=== PATIENT | female | born 1935 | race Caucasian/White ===

== ENCOUNTER 2017-08-05 13:06 | Inpatient (IN) | payer MEDICARE ==
[~2017-08-05] VITALS: Ht 157.5 cm; Wt 50.3 kg
[2017-08-05 13:11] VITALS: BP 162/89; PULSE 95; RESP 25; TEMP 97.2; O2SAT 99
[2017-08-05 13:22] VITALS: BP 162/89; PULSE 82; RESP 25; TEMP 97.2; O2SAT 98
[2017-08-05 13:48] LABS: AUTOMATED NEUTROPHIL # 3.8 TH/MM3 (1.8-7.7); BASOPHIL % 0.3 % (0.0-2.0); EOSINOPHIL % 0.1 % (0.0-4.0); HEMATOCRIT 40.8 % (35.0-46.0); HEMOGLOBIN 13.5 GM/DL (11.6-15.3); LYMPH % 21.4 % (9.0-44.0); LYMPHOCYTE # 1.1 TH/MM3 (1.0-4.8); MEAN CELL VOLUME 80.7 FL (80.0-100.0); MEAN CORPUSCULAR HEMOGLOBIN 26.6 PG (27.0-34.0); MEAN PLATELET VOLUME 8.5 FL (7.0-11.0); MONOCYTE # 0.3 TH/MM3 (0-0.9); NEUT % 72.2 % (16.0-70.0); PLATELET COUNT 221 TH/MM3 (150-450); RED BLOOD COUNT 5.06 MIL/MM3 (4.00-5.30); RED CELL DISTRIBUTION WIDTH 18.4 % (11.6-17.2); WHITE BLOOD COUNT 5.2 TH/MM3 (4.0-11.0)
[2017-08-05 14:03] LABS: D-DIMER 0.91 MG/L FEU (0.00-0.50); INTERNATIONAL NORMALIZED RATIO 1.1 RATIO; PROTHROMBIN TIME - PATIENT 10.8 SEC (9.8-11.6)
[2017-08-05 14:06] LABS: BICARBONATE 24.4 MEQ/L (21.0-32.0); CALCIUM 9.1 MG/DL (8.5-10.1); CREATININE 1.52 MG/DL (0.50-1.00)
--- NOTE | 2017-08-05 14:14 | RADRPT ---
EXAM DATE/TIME: 08/05/2017 13:42 [place] COMPARISON: No previous studies available for comparison. INDICATIONS : Chest pain and shortness of breath today. MEDICAL HISTORY : Atrial fibrillation. SURGICAL HISTORY : None. ENCOUNTER: Initial ACUITY: 1 day PAIN SCORE: 3/10 LOCATION: Bilateral chest FINDINGS: Cardiomegaly with moderate interstitial edema. Moderate hyperinflation Vascular tortuous and uncoil ed. There is no pleural effusion or alveolar consolidation. Moderate mitral valve calcifications. CONCLUSION: Moderate hyperinflation and cardiomegaly and congestive failure. No pleural effusion Dagoberto Martines MD FACR on August 05, 2017 at 14:11 Board Certified Radiologist. This report was verified electronically.
--- NOTE | 2017-08-05 14:22 | PD ---
HPI Chief Complaint: Respiratory Distress Time Seen by Provider: 13:56 Travel History International Travel<30 days: No Contact w/Intl Traveler<30days: No Traveled to known affect area: No History of Present Illness HPI Patient is an 82-year-old female presenting to the emergency department for evaluation of shortness of breath, palpitations. Patient states this is been going on for a few weeks. She has been evaluated by her gas generator operator, she was put on metoprolol on July 24 and then pravastatin 2 days ago. She reports that the shortness of breath is worse with exertion which is also been ongoing for a few weeks. Patient has a history of atrial fibrillation, she had a cardioversion 2 years ago. She is currently on Eliquis, metoprolol, lisinopril , omeprazole, pravastatin. Patient states that the shortness of breath is worse at night, she states that she has to sit up or walk around in order to make it better. She does endorse feeling anxious at times. She is denying any chest pain. She does state that she vomited twice today, she denies any abdominal pain, fever, chills, headache. She has no primary care provider in the area, she is from [facility]. Her gas generator operator is Dr. Rissa LEON Past Medical History Hx Anticoagulant Therapy: Yes (ELIQUIS) Atrial Fibrillation: Yes Cardiovascular Problems: Yes (AFIB) High Cholesterol: Yes Hypertension: Yes ?: Not Social History Alcohol Use: No Tobacco Use: No Substance Use: No Allergies-Medications (Allergen,Severity, Reaction): Coded Allergies: Penicillins (Verified Allergy, Severe, Rash, 08/05/17) sesame seed (Verified Allergy, Severe, Hives, 08/05/17) strawberry (Verified Allergy, Severe, Hives, 08/05/17) morphine (Verified Adverse Reaction, Severe, Nausea/Vomiting, 08/05/17) propoxyphene (Verified Adverse Reaction, Severe, Nausea/Vomiting, 08/05/17) Reported Meds & Prescriptions Reported Meds & Active Scripts Active Reported Lisinopril 10 Mg Tab 10 Mg PO DAILY Pravastatin 20 Mg Tab 20 Mg PO DAILY Eliquis (Apixaban) 2.5 Mg Tab 2.5 Mg PO BID Omeprazole 20 Mg Tab 20 Mg PO DAILY Metoprolol Tartrate 50 Mg Tab 50 Mg PO BID Review of Systems Except as stated in HPI: all other systems reviewed are Neg General / Constitutional: No: Fever HENT: No: Headaches, Lightheadedness Cardiovascular: Positive: Palpitations, Irregular Rhythm, No: Chest Pain or Discomfort, Edema Respiratory: Positive: Shortness of Breath, No: Cough Gastrointestinal: Positive: Nausea, Vomiting, No: Abdominal Pain Genitourinary: No: Dysuria Musculoskeletal: No: Myalgias Neurologic: No: Weakness, Dizziness, Syncope, Focal Abnormalities Physical Exam Narrative GENERAL: Well-developed, well-nourished, alert elderly female. Presenting in no acute distress. SKIN: Warm and dry. HEAD: Atraumatic. Normocephalic. EYES: Pupils equal and round. No scleral icterus. No injection or drainage. ENT: No nasal bleeding or discharge. Mucous membranes pink and moist. NECK: Trachea midline. No JVD. CARDIOVASCULAR: Irregularly irregular RESPIRATORY: No accessory muscle use. Clear to auscultation. Breath sounds equal bilaterally. Slightly diminished in bases. GASTROINTESTINAL: Abdomen soft, non-tender, nondistended. Hepatic and splenic margins not palpable. MUSCULOSKELETAL: Extremities without clubbing, cyanosis, or edema. No obvious deformities. NEUROLOGICAL: Awake and alert. No obvious cranial nerve deficits. Motor grossly within normal limits. Five out of 5 muscle strength in the arms and legs. Normal speech. PSYCHIATRIC: Appropriate mood and affect; insight and judgment normal. Data Data Last Documented VS Vital Signs Date Time Temp Pulse Resp B/P (MAP) Pulse Ox O2 Delivery O2 Flow Rate FiO2 08/05/17 15:26 20 94 Room Air 08/05/17 13:22 97.2 82 Orders Orders Complete Blood Count With Diff (08/05/17 13:18) Basic Metabolic Panel (Bmp) (08/05/17 13:18) Chest, Pa & Lat (08/05/17 13:18) Iv Access Insert/Monitor (08/05/17 13:18) Ecg Monitoring (08/05/17 13:18) Oxygen Administration (08/05/17 13:18) Oximetry (08/05/17 13:18) Electrocardiogram (08/05/17 13:18) Prothrombin Time / Inr (Pt) (08/05/17 13:18) D-Dimer (08/05/17 13:18) B-Type Natriuretic Peptide (08/05/17 14:14) Ckmb (Isoenzyme) Profile (08/05/17 14:14) Troponin I (08/05/17 14:14) Lipase (08/05/17 14:14) Hepatic Functional Panel (08/05/17 14:14) Urinalysis - C+S If Indicated (08/05/17 15:06) Urine Culture (08/05/17 15:15) Furosemide Inj (Lasix Inj) (08/05/17 15:45) Ceftriaxone Inj (Rocephin Inj) (08/05/17 16:00) Admit Order (Ed Use Only) (08/05/17 16:02) Labs Laboratory Tests Test 08/05/17 13:30 08/05/17 13:36 08/05/17 15:15 White Blood Count 5.2 TH/MM3 Red Blood Count 5.06 MIL/MM3 Hemoglobin 13.5 GM/DL Hematocrit 40.8 % Mean Corpuscular Volume 80.7 FL Mean Corpuscular Hemoglobin 26.6 PG Mean Corpuscular Hemoglobin Concent 33.0 % Red Cell Distribution Width 18.4 % Platelet Count 221 TH/MM3 Mean Platelet Volume 8.5 FL Neutrophils (%) (Auto) 72.2 % Lymphocytes (%) (Auto) 21.4 % Monocytes (%) (Auto) 6.0 % Eosinophils (%) (Auto) 0.1 % Basophils (%) (Auto) 0.3 % Neutrophils # (Auto) 3.8 TH/MM3 Lymphocytes # (Auto) 1.1 TH/MM3 Monocytes # (Auto) 0.3 TH/MM3 Eosinophils # (Auto) 0.0 TH/MM3 Basophils # (Auto) 0.0 TH/MM3 CBC Comment DIFF FINAL Differential Comment Prothrombin Time 10.8 SEC Prothromb Time International Ratio 1.1 RATIO D-Dimer Quantitative (PE/DVT) 0.91 MG/L FEU Blood Urea Nitrogen 35 MG/DL Creatinine 1.52 MG/DL Random Glucose 168 MG/DL Calcium Level 9.1 MG/DL Sodium Level 133 MEQ/L Potassium Level 5.6 MEQ/L Chloride Level 99 MEQ/L Carbon Dioxide Level 24.4 MEQ/L Anion Gap 10 MEQ/L Estimat Glomerular Filtration Rate 33 ML/MIN Total Bilirubin 0.7 MG/DL Direct Bilirubin 0.2 MG/DL Indirect Bilirubin 0.5 MG/DL Aspartate Amino Transf (AST/SGOT) 123 U/L Alanine Aminotransferase (ALT/SGPT) 176 U/L Alkaline Phosphatase 111 U/L Total Creatine Kinase 79 U/L Troponin I LESS THAN 0.02 NG/ML Total Protein 7.3 GM/DL Albumin 3.8 GM/DL Lipase 142 U/L B-Type Natriuretic Peptide GREATER THAN 5000 PG/ML Urine Color YELLOW Urine Turbidity CLEAR Urine pH 6.0 Urine Specific [place] 1.018 Urine Protein 30 mg/dL Urine Glucose (UA) NEG mg/dL Urine Ketones NEG mg/dL Urine Occult Blood TRACE Urine Nitrite NEG Urine Bilirubin NEG Urine Urobilinogen LESS THAN 2.0 MG/DL Urine Leukocyte Esterase LARGE Urine RBC 7 /hpf Urine WBC 36 /hpf Urine Squamous Epithelial Cells 1 /hpf Urine Transitional Epithelial Cells 1 /hpf Urine Bacteria OCC /hpf Urine Hyaline Casts 7 /lpf Urine Mucus FEW /lpf Microscopic Urinalysis Comment CULTURE INDICATED MDM Medical Decision Making Medical Screen Exam Complete: Yes Emergency Medical Condition: Yes Interpretation(s) Laboratory Tests Test 08/05/17 13:30 08/05/17 13:36 08/05/17 15:15 White Blood Count 5.2 TH/MM3 Red Blood Count 5.06 MIL/MM3 Hemoglobin 13.5 GM/DL Hematocrit 40.8 % Mean Corpuscular Volume 80.7 FL Mean Corpuscular Hemoglobin 26.6 PG Mean Corpuscular Hemoglobin Concent 33.0 % Red Cell Distribution Width 18.4 % Platelet Count 221 TH/MM3 Mean Platelet Volume 8.5 FL Neutrophils (%) (Auto) 72.2 % Lymphocytes (%) (Auto) 21.4 % Monocytes (%) (Auto) 6.0 % Eosinophils (%) (Auto) 0.1 % Basophils (%) (Auto) 0.3 % Neutrophils # (Auto) 3.8 TH/MM3 Lymphocytes # (Auto) 1.1 TH/MM3 Monocytes # (Auto) 0.3 TH/MM3 Eosinophils # (Auto) 0.0 TH/MM3 Basophils # (Auto) 0.0 TH/MM3 CBC Comment DIFF FINAL Differential Comment Prothrombin Time 10.8 SEC Prothromb Time International Ratio 1.1 RATIO D-Dimer Quantitative (PE/DVT) 0.91 MG/L FEU Blood Urea Nitrogen 35 MG/DL Creatinine 1.52 MG/DL Random Glucose 168 MG/DL Calcium Level 9.1 MG/DL Sodium Level 133 MEQ/L Potassium Level 5.6 MEQ/L Chloride Level 99 MEQ/L Carbon Dioxide Level 24.4 MEQ/L Anion Gap 10 MEQ/L Estimat Glomerular Filtration Rate 33 ML/MIN Total Bilirubin 0.7 MG/DL Direct Bilirubin 0.2 MG/DL Indirect Bilirubin 0.5 MG/DL Aspartate Amino Transf (AST/SGOT) 123 U/L Alanine Aminotransferase (ALT/SGPT) 176 U/L Alkaline Phosphatase 111 U/L Total Creatine Kinase 79 U/L Troponin I LESS THAN 0.02 NG/ML Total Protein 7.3 GM/DL Albumin 3.8 GM/DL Lipase 142 U/L B-Type Natriuretic Peptide GREATER THAN 5000 PG/ML Urine Color YELLOW Urine Turbidity CLEAR Urine pH 6.0 Urine Specific [place] 1.018 Urine Protein 30 mg/dL Urine Glucose (UA) NEG mg/dL Urine Ketones NEG mg/dL Urine Occult Blood TRACE Urine Nitrite NEG Urine Bilirubin NEG Urine Urobilinogen LESS THAN 2.0 MG/DL Urine Leukocyte Esterase LARGE Urine RBC 7 /hpf Urine WBC 36 /hpf Urine Squamous Epithelial Cells 1 /hpf Urine Transitional Epithelial Cells 1 /hpf Urine Bacteria OCC /hpf Urine Hyaline Casts 7 /lpf Urine Mucus FEW /lpf Microscopic Urinalysis Comment CULTURE INDICATED Date Time Temp Pulse Resp B/P (MAP) Pulse Ox O2 Delivery O2 Flow Rate FiO2 08/05/17 13:22 97.2 82 25 162/89 (113) 98 Room Air 08/05/17 13:11 97.2 95 25 162/89 (113) 99 Differential Diagnosis CHF versus metabolic abnormality versus anxiety versus less likely pulmonary embolism versus other Narrative Course Patient is a well-appearing 82-year-old female presenting for evaluation of shortness of breath which is worse with exertion. She has a history of atrial fibrillation, she is currently on Eliquis and metoprolol. Initial EKG shows atrial fibrillation with rapid ventricular response however her rate is only 100. Patient is well-appearing, her vital signs are stable. Current heart rate is in the 70s. Labs and imaging ordered and pending. Patient was protocoled in triage. CBC with no acute findings Chemistry with BUN and creatinine 35/1.52, potassium 5.6, AST and ALT 123/176 BNP greater than 5000 Urinalysis is consistent with urinary tract infection, reflex culture pending. Patient reports an allergy to penicillin but is able to tolerate Keflex. Patient will be given dose of Rocephin now. D-dimer 0.91, likely demand ischemia from the congestive heart failure and acute renal insufficiency. Findings discussed with my attending physician. Residents accepted admit on behalf of Dr. Ira Ceja. Admit orders placed. All exam findings were discussed with patient and friend at bedside. Diagnosis Primary Impression: Congestive heart failure Qualified Codes: I50.9 - Heart failure, unspecified Additional Impressions: Acute renal insufficiency UTI (urinary tract infection) Qualified Codes: N39.0 - Urinary tract infection, site not specified; R31.9 - Hematuria, unspecified Hyperkalemia Transaminitis Atrial fibrillation Qualified Codes: I48.91 - Unspecified atrial fibrillation Admitting Information Admitting Physician Requests: Admit Condition: Stable Eloisa Guerra Aug 05, 2017 14:22
[2017-08-05 15:14] LABS: ALBUMIN 3.8 GM/DL (3.4-5.0); ALKALINE PHOSPHATASE 111 U/L (45-117); ALT (GPT) 176 U/L (10-53); AST (GOT) 123 U/L (15-37); DIRECT BILIRUBIN ADULT 0.2 MG/DL (0.0-0.2); INDIRECT BILIRUBIN 0.5 MG/DL (0.0-0.8); TOTAL BILIRUBIN ADULT 0.7 MG/DL (0.2-1.0); TOTAL PROTEIN 7.3 GM/DL (6.4-8.2); TROPONIN I LESS THAN 0.02 NG/ML (0.02-0.05)
[2017-08-05] MEDS ORDERED: APIX2.5T PO (15:23)
[2017-08-05] MEDS ORDERED: LISI10TA3 PO (15:23)
[2017-08-05] MEDS ORDERED: OMEP20TA93 PO (15:23)
[2017-08-05] MEDS ORDERED: PRAV20TA2 PO (15:23)
[2017-08-05] MEDS ORDERED: METO50TA PO (15:23)
[2017-08-05 15:26] VITALS: RESP 20; O2SAT 94
[2017-08-05 15:36] LABS: BACTERIA, URINE OCC /hpf; BILIRUBIN, URINE NEG (NEG); BLOOD, URINE TRACE (NEG); GLUCOSE,URINE NEG (NEG); HYALINE CAST, URINE 7 /lpf (RARE); KETONE, URINE NEG (NEG); MUCUS URINE FEW /lpf (OCC); NITRITE,URINE NEG (NEG); SQUAMOUS EPITHELIAL CELL URINE 1 /hpf (0-5); TRANSITIONAL EPI CELLS, URINE 1 /hpf; URINE COLOR YELLOW (YELLW/STRAW); URINE LEUKOCYTE ESTERASE LARGE (NEG)
[2017-08-05] MEDS ORDERED: FUROSEMIDE 40 MG/4 ML VIAL IV PUSH ONE (15:45)
[2017-08-05] MEDS ORDERED: cefTRIAXone INJ 1,000 MG in SODIUM CHLORIDE 0.9% INJ 100 ML IV ONE (16:00)
--- NOTE | 2017-08-05 16:27 | HHI.HP ---
HPI Service Family Medicine Primary Care Physician Unknown Admission Diagnosis CHF, acute renal insufficiency, UTI Diagnoses: Chief Complaint: shortness of breath International Travel<30 Days: No Contact w/Intl Traveler<30days: No Known Affected Area: No History of Present Illness 82-year-old female with history of CHF, atrial fibrillation presents with shortness of breath. She states that she started getting short of breath about a week ago. It progressively worsened, was not sudden onset. States she's been unable to sleep. Shortness of breath worse when laying down. She states she now cannot walk more than 4 steps without getting very short of breath. Has aany recent weight gain. Has had chronic edema in her legs, hasn't noticed worsening in the last week. Last summer, she is to walk 2 miles without any difficulty. Not on oxygen at home. She was in [place], but has come down here for the winter to spend time with friends. She just established with Dr. Kwok 2 weeks ago, who started her on some new medications, specifically started her on metoprolol and d/c her Dronedarone. States she just had echocardiogram last week, as well as some labs. States she's been drinking some water, but tries to stay away from salt. Had vomiting 2 today with some nausea, but that is improved. Denies any chest pain. Review of Systems Constitutional: DENIES: Fever, Weight gain, Weight loss, Chills, Night Sweats Endocrine: COMPLAINS OF: Heat/cold intolerance Eyes: DENIES: Eye pain, Vision loss Ears, nose, mouth, throat: DENIES: Nasal discharge, Throat pain Respiratory: COMPLAINS OF: Cough, DENIES: Snoring, Shortness of breath Cardiovascular: COMPLAINS OF: Palpitations, Dyspnea on Exertion, Lower Extremity Edema, Orthopnea, DENIES: Chest pain, Syncope Gastrointestinal: COMPLAINS OF: Nausea, Vomiting, DENIES: Abdominal pain, Black stools, Bloody stools, Constipation, Diarrhea Genitourinary: DENIES: Hematuria, Dysuria, Nocturia Musculoskeletal: COMPLAINS OF: Joint pain, DENIES: Neck pain Integumentary: DENIES: Abnormal pigmentation, Rash Neurologic: DENIES: Headache, Localized weakness, Paresthesias Psychiatric: DENIES: Confusion, Mood changes Past Family Social History Past Medical History CHF Afib Prolapsed bladder Anemia-esophageal ulcers Cataracts Past Surgical History Hysterectomy-02/2017 Left knee replacement Tonsillectomy [id number] Cataract surgery Reported Medications Reported Meds & Active Scripts Active Reported Lisinopril 10 Mg Tab 10 Mg PO DAILY Pravastatin 20 Mg Tab 20 Mg PO DAILY Eliquis (Apixaban) 2.5 Mg Tab 2.5 Mg PO BID Omeprazole 20 Mg Tab 20 Mg PO DAILY Metoprolol Tartrate 50 Mg Tab 50 Mg PO BID Allergies: Coded Allergies: Penicillins (Verified Allergy, Severe, Rash, 08/05/17) sesame seed (Verified Allergy, Severe, Hives, 08/05/17) strawberry (Verified Allergy, Severe, Hives, 08/05/17) morphine (Verified Adverse Reaction, Severe, Nausea/Vomiting, 08/05/17) propoxyphene (Verified Adverse Reaction, Severe, Nausea/Vomiting, 08/05/17) Active Ordered Medications Active Medications Ceftriaxone Sodium 1000 mg/ Sodium Chloride 100 ml @ 200 mls/hr ONCE ONCE IV Last administered on 08/05/17at 16:01; Admin Dose 200 MLS/HR; Start 08/05/17 at 16: 00; Stop 08/05/17 at 16:29; Status DC Furosemide (Lasix Inj) 40 mg ONCE ONCE IV PUSH Last administered on 08/05/17at 15 :46; Admin Dose 40 MG; Start 08/05/17 at 15:45; Stop 08/05/17 at 15:46; Status DC Family History Father-heart disease Mother-healthy, Brother-heart disease Social History 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 EYES: Pupils equal, round, reactive to light and accommodation. Lids and conjunctivae reveal no gross abnormality. No scleral icterus. ENT: Hearing adequate. Head normocephalic atraumatic. OP/OC clear. No cervical or supraclavicular lymphadenopathy. NECK: No obvious JVD. No carotid bruits. Neck supple, no masses. Trachea midline. No thyromegaly. RESPIRATORY: Faint bibasilar crackles and slightly decreased lung sounds. No increased work of breathing. CARDIOVASCULAR: Irregular rhythm. Normal rate. Radial and DP pulses 2+ and symmetric bilaterally. Brisk capillary refill in both hands and feet. ABDOMEN: Non tender. Bowel sounds x 4. No masses or pulsations present. No obvious hepatomegaly. No obvious ascites. EXTREMITIES: Mild pitting edema bilaterally to the level of the shins. Chronic venous stasis changes. MUSCULOSKELETAL: MAEW without significant joint pain or deformity. No calf tenderness. SKIN: Essentially clear with no significant rash or lesions. Adequate skin turgor. NEUROLOGICAL: NFND. Cranial nerves 2-12 grossly intact. PSYCHIATRIC: Mental status normal for age. Laboratory Laboratory Tests Test 08/05/17 13:30 08/05/17 13:36 08/05/17 15:15 White Blood Count 5.2 Red Blood Count 5.06 Hemoglobin 13.5 Hematocrit 40.8 Mean Corpuscular Volume 80.7 Mean Corpuscular Hemoglobin 26.6 Mean Corpuscular Hemoglobin Concent 33.0 Red Cell Distribution Width 18.4 Platelet Count 221 Mean Platelet Volume 8.5 Neutrophils (%) (Auto) 72.2 Lymphocytes (%) (Auto) 21.4 Monocytes (%) (Auto) 6.0 Eosinophils (%) (Auto) 0.1 Basophils (%) (Auto) 0.3 Neutrophils # (Auto) 3.8 Lymphocytes # (Auto) 1.1 Monocytes # (Auto) 0.3 Eosinophils # (Auto) 0.0 Basophils # (Auto) 0.0 CBC Comment DIFF FINAL Differential Comment Prothrombin Time 10.8 Prothromb Time International Ratio 1.1 D-Dimer Quantitative (PE/DVT) 0.91 Blood Urea Nitrogen 35 Creatinine 1.52 Random Glucose 168 Calcium Level 9.1 Sodium Level 133 Potassium Level 5.6 Chloride Level 99 Carbon Dioxide Level 24.4 Anion Gap 10 Estimat Glomerular Filtration Rate 33 Total Bilirubin 0.7 Direct Bilirubin 0.2 Indirect Bilirubin 0.5 Aspartate Amino Transf (AST/SGOT) 123 Alanine Aminotransferase (ALT/SGPT) 176 Alkaline Phosphatase 111 Total Creatine Kinase 79 Troponin I LESS THAN 0.02 Total Protein 7.3 Albumin 3.8 Lipase 142 B-Type Natriuretic Peptide GREATER THAN 5000 Urine Color YELLOW Urine Turbidity CLEAR Urine pH 6.0 Urine Specific [place] 1.018 Urine Protein 30 Urine Glucose (UA) NEG Urine Ketones NEG Urine Occult Blood TRACE Urine Nitrite NEG Urine Bilirubin NEG Urine Urobilinogen LESS THAN 2.0 Urine Leukocyte Esterase LARGE Urine RBC 7 Urine WBC 36 Urine Squamous Epithelial Cells 1 Urine Transitional Epithelial Cells 1 Urine Bacteria OCC Urine Hyaline Casts 7 Urine Mucus FEW Microscopic Urinalysis Comment CULTURE INDICATED Date/Time Source Procedure Growth Status 08/05/17 15:15 Urine Clean Catch Urine Culture Pending Received Result Diagram: 08/05/17 1330 08/05/17 1330 Imaging Last Impressions Chest X-Ray 08/05/17 1318 Signed Impressions: Service Date/Time: Saturday, August 05, 2017 13:42 - CONCLUSION: Moderate hyperinflation and cardiomegaly and congestive failure. No pleural effusion Dagoberto Martnies MD FACR Caprini VTE Risk Assessment Caprini VTE Risk Assessment: Mod/High Risk (score >= 2) Caprini Risk Assessment Model Point Value = 1 Point Value = 2 Point Value = 3 Point Value = 5 Age 41-60 Minor surgery BMI > 25 kg/m2 Swollen legs Varicose veins or History of unexplained or recurrent spontaneous Oral contraceptives or hormone replacement Sepsis (< 1 month) Serious lung disease, including pneumonia (< 1 month) Abnormal pulmonary function Acute myocardial infarction Congestive heart failure (< 1 month) History of inflammatory bowel disease Medical patient at bed rest Age 61-74 Arthroscopic surgery Major open surgery (> 45 min) Laparoscopic surgery (> 45 min) Malignancy Confined to bed (> 72 hours) Immobilizing plaster cast Central venous access Age >= 75 History of VTE Family history of VTE Factor V Leiden Prothrombin [id number] Lupus anticoagulant Anticardiolipin antibodies Elevated serum homocysteine Heparin-induced thrombocytopenia Other congenital or acquired thrombophilia Stroke (< 1 month) Elective arthroplasty Hip, pelvis, or leg fracture Acute spinal cord injury (< 1 month) Prophylaxis Regimen Total Risk Factor Score Risk Level Prophylaxis Regimen 0-1 Low Early ambulation 2 Moderate Order ONE of the following: *Sequential Compression Device (SCD) *Heparin 5000 units SQ BID 3-4 Higher Order ONE of the following medications: *Heparin 5000 units SQ TID *Enoxaparin/Lovenox 40 mg SQ daily (WT < 150 kg, CrCl > 30 mL/min) *Enoxaparin/Lovenox 30 mg SQ daily (WT < 150 kg, CrCl > 10-29 mL/min) *Enoxaparin/Lovenox 30 mg SQ BID (WT < 150 kg, CrCl > 30 mL/min) AND/OR *Sequential Compression Device (SCD) 5 or more Highest Order ONE of the following medications: *Heparin 5000 units SQ TID (Preferred with Epidurals) *Enoxaparin/Lovenox 40 mg SQ daily (WT < 150 kg, CrCl > 30 mL/min) *Enoxaparin/Lovenox 30 mg SQ daily (WT < 150 kg, CrCl > 10-29 mL/min) *Enoxaparin/Lovenox 30 mg SQ BID (WT < 150 kg, CrCl > 30 mL/min) AND *Sequential Compression Device (SCD) Assessment and Plan Assessment and Plan 82 y/o female with history of CHF, AFib presents with shortness of breath. Found to have elevated BNP and in CHF exacerbation. Will admit for workup and management Code Status Full Discussed Condition With Eloisa Guerra Problem List: (1) Congestive heart failure ICD Codes: I50.9 - Heart failure, unspecified Status: Acute Plan: Pt. has a cardiac history sig. for CHF and atrial fibrillation. Suspect acute decompensated heart failure. EKG showed age fibrillation, with rate of 100 Initial set of cardiac enzymes negative CXR showed moderate hyperinflation and cardiomegaly and congestive failure. No pleural effusion. BNP >5000. D-dimer of 0.91, Wells score is essentially 0, making PE less likely; may be elevated due to CHF strain -Lasix 40 mg IV BID. -Continue lisinopril -Trend C/E's and EKG's Q6 hrs x 2. -Will attempt to get records from cardiology's office; pt had Echo last week -Encourage patient to sit up in bed with legs below chest or in chair with legs hanging down. -Low-salt diet less than 2 g per day. Fluid restrict to 1.5 L per day. -Strict Is and Os. Daily weights. -Supplemental oxygen and monitor on pulse ox. -Telemetry. -Consulted cardiology-Dr. Kwok, to follow while in hospital (2) Atrial fibrillation ICD Codes: I48.91 - Unspecified atrial fibrillation Status: Acute Plan: History of atrial fibrillation. Well-controlled rate on admission. -Continue metoprolol -Continue Eliquis (3) Acute renal insufficiency ICD Codes: N28.9 - Disorder of kidney and ureter, unspecified Status: Acute Plan: Patient presents with BUN of 35, creatinine of 1.52. Unsure etiology. Unsure of baseline. -Monitor BMP -Fluid restricting due to CHF -Avoid nephrotoxic agents (4) UTI (urinary tract infection) ICD Codes: N39.0 - Urinary tract infection, site not specified Status: Acute Plan: UA shows large leukocyte esterase, 36 Benny C, occasional bacteria. -Continue Rocephin 1g BID -Urine culture pending (5) Transaminitis ICD Codes: R74.0 - Nonspecific elevation of levels of transaminase and lactic acid dehydrogenase [LDH] Status: Acute Plan: AST 123, ALT of 176 on admission. Unsure etiology -Ultrasound of liver -Monitor CMP (6) HLD (hyperlipidemia) ICD Codes: E78.5 - Hyperlipidemia, unspecified Plan: Continue home pravastatin (7) FEN Status: Acute Plan: Fluids: Fluid restriction Electrolytes: Hyperkalemia, monitor; replace PRN Nutrition: heart healthy diet DVT ppx: Eliquis GI ppx: continue home omeprazole Physician Certification 2 Midnight Certification Type: Admission for Inpatient Services Order for Inpatient Services The services are ordered in accordance with Medicare regulations or non- Medicare payer requirements, as applicable. In the case of services not specified as inpatient-only, they are appropriately provided as inpatient services in accordance with the 2-midnight benchmark. Estimated LOS (days): 2 days is the estimated time the patient will need to remain in the hospital, assuming treatment plan goals are met and no additional complications. Post-Hospital Plan: Home Problem Qualifiers (1) Congestive heart failure: Qualified Codes: I50.9 - Heart failure, unspecified (2) Atrial fibrillation: Qualified Codes: I48.91 - Unspecified atrial fibrillation (3) UTI (urinary tract infection): Qualified Codes: N39.0 - Urinary tract infection, site not specified; R31.9 - Hematuria, unspecified (4) HLD (hyperlipidemia): Qualified Codes: E78.5 - Hyperlipidemia, unspecified Liam Vieira MD Aug 05, 2017 16:27
[2017-08-05] MEDS ORDERED: SODIUM CHLORIDE 0.9% FLUSH 10 ML FLUSH IV FLUSH PRN (17:15)
[2017-08-05] MEDS ORDERED: ENOXAPARIN SODIUM 40 MG/0.4 ML SYRINGE SQ SCH (17:15)
[2017-08-05] MEDS: FUROSEMIDE 40 MG/4 ML VIAL IVP SCH (18:00)
[2017-08-05 18:45] VITALS: BP 136/89; PULSE 87; RESP 20; TEMP 97.3; O2SAT 100
[2017-08-05 19:52] VITALS: PULSE 102
[2017-08-05 20:00] VITALS: BP 117/92; PULSE 91; RESP 19; TEMP 97.2; O2SAT 96
[2017-08-05] MEDS: SODIUM CHLORIDE 0.9% FLUSH 10 ML FLUSH IV FLUSH SCH (21:00)
[2017-08-05] MEDS: METOPROLOL TARTRATE 50 MG TAB PO SCH (21:50)
[2017-08-05] MEDS: APIXABAN 2.5 MG TABLET PO SCH (21:50)
--- NOTE | 2017-08-05 21:55 | RADRPT ---
EXAM DATE/TIME: 08/05/2017 19:30 [place] COMPARISON: No previous studies available for comparison. INDICATIONS : Increased lab values. MEDICAL HISTORY : Hypercholesterolemia. Hypertension. Atrial fibrillation. Anticoagulant therapy, eliquis. Palpitatio ns. Nausea. Vomiting, Joint pain. SURGICAL HISTORY : None. ENCOUNTER: Initial ACUITY: 1 day PAIN SCORE: 3/10 LOCATION: Bilateral upper quadrant MEASUREMENTS: LIVER: 12.0 cm length COMMON DUCT: 3 mm RIGHT KIDNEY: 7.5 x 3.6 x 3.0 cm SPLEEN: 6.3 cm length FINDINGS: LIVER: 2.1 cm cyst in the right lobe. COMMON DUCT: No intraluminal mass or stone visualized. GALLBLADDER: No gallstones. Gallbladder wall thickened. PANCREAS: The visualized portions are within normal limits. RIGHT KIDNEY: Small and echogenic. SPLEEN: No focal lesion. CONCLUSION: No gallstones. Gallbladder wall thickening. No biliary ductal dilatation. Small cyst right lobe liver . Luis Jackson MD on August 05, 2017 at 21:50 Board Certified Radiologist. This report was verified electronically.
[2017-08-06] VITALS (11 sets, daily range): BP systolic 109–134; BP diastolic 62–91; PULSE 74–92; RESP 17–21; TEMP 97.4–97.7; O2SAT 92–98
[2017-08-06 07:56] LABS: AUTOMATED NEUTROPHIL # 3.5 TH/MM3 (1.8-7.7); BASOPHIL % 0.3 % (0.0-2.0); EOSINOPHIL # 0.1 TH/MM3 (0-0.4); EOSINOPHIL % 2.2 % (0.0-4.0); HEMATOCRIT 35.8 % (35.0-46.0); HEMOGLOBIN 12.2 GM/DL (11.6-15.3); LYMPH % 30.4 % (9.0-44.0); LYMPHOCYTE # 1.9 TH/MM3 (1.0-4.8); MEAN CELL VOLUME 80.4 FL (80.0-100.0); MEAN CORPUSCULAR HEMOGLOBIN 27.2 PG (27.0-34.0); MEAN CORPUSCULAR HGB CONC 33.9 % (32.0-36.0); MEAN PLATELET VOLUME 8.7 FL (7.0-11.0); MONO % 10.4 % (0.0-8.0); MONOCYTE # 0.6 TH/MM3 (0-0.9); NEUT % 56.7 % (16.0-70.0); PLATELET COUNT 197 TH/MM3 (150-450); RED BLOOD COUNT 4.46 MIL/MM3 (4.00-5.30); RED CELL DISTRIBUTION WIDTH 17.7 % (11.6-17.2); WHITE BLOOD COUNT 6.2 TH/MM3 (4.0-11.0)
[2017-08-06] MEDS: METOPROLOL TARTRATE 50 MG TAB PO SCH ×2 (08:08→20:30)
[2017-08-06] MEDS: PANTOPRAZOLE SOD 20 MG DELAYED RELEASE TAB PO SCH (08:08)
[2017-08-06] MEDS: ASPIRIN 81 MG CHEW TAB CHEW SCH (08:09)
[2017-08-06] MEDS: APIXABAN 2.5 MG TABLET PO SCH ×2 (08:09→20:30)
[2017-08-06] MEDS: PRAVASTATIN SOD 20 MG TAB PO SCH (08:10)
[2017-08-06] MEDS: FUROSEMIDE 40 MG/4 ML VIAL IVP SCH ×2 (08:10→17:34)
[2017-08-06] MEDS: SODIUM CHLORIDE 0.9% FLUSH 10 ML FLUSH IV FLUSH SCH ×2 (08:11→20:31)
[2017-08-06] MEDS: LISINOPRIL 10 MG TAB PO SCH (08:11)
[2017-08-06 08:37] LABS: ALBUMIN 3.1 GM/DL (3.4-5.0); ALKALINE PHOSPHATASE 88 U/L (45-117); ALT (GPT) 113 U/L (10-53); AST (GOT) 61 U/L (15-37); BICARBONATE 28.2 MEQ/L (21.0-32.0); BLOOD UREA NITROGEN 37 MG/DL (7-18); CALCIUM 7.9 MG/DL (8.5-10.1); CHLORIDE 97 MEQ/L (98-107); CREATININE 1.36 MG/DL (0.50-1.00); GLOMERULAR FILTRATION RATE 37 ML/MIN (>89); GLUCOSE,RANDOM 77 MG/DL (74-106); SODIUM (NA) 135 MEQ/L (136-145); TOTAL BILIRUBIN ADULT 0.5 MG/DL (0.2-1.0); TOTAL PROTEIN 5.7 GM/DL (6.4-8.2); TROPONIN I LESS THAN 0.02 NG/ML (0.02-0.05)
--- NOTE | 2017-08-06 11:49 | HHI.FPPN ---
Subjective Remarks Patient seen and examined this morning. Temperature 97.7, pulse 88, respiratory rate 21, blood pressure 133/87, pulse ox 92 on room air. History of COPD so she can tolerate a low oxygenation. She reports that today she is feeling a whole lot better. She was having to frequently use the restroom due to the Lasix. Prior to admission she can only take 4 steps without becoming short of breath now she is able to walk to and from the bathroom feeling quite fine. She was sitting in the chair and reports that she feels very comfortable. (Moises Alicea MD, R3) Objective Vitals Vital Signs Date Time Temp Pulse Resp B/P (MAP) Pulse Ox O2 Delivery O2 Flow Rate FiO2 08/06/17 09:37 92 21 08/06/17 08:13 Nasal Cannula 2.00 08/06/17 08:00 82 08/06/17 08:00 97.7 88 21 133/87 (102) 98 08/06/17 04:00 Nasal Cannula 2.00 08/06/17 04:00 97.7 80 17 134/83 (100) 96 08/06/17 03:59 97 Nasal Cannula 2.00 08/06/17 00:16 82 08/06/17 00:00 97.7 92 19 117/91 (100) 98 08/06/17 00:00 Nasal Cannula 2.00 08/05/17 21:00 Nasal Cannula 2.00 08/05/17 20:00 97.2 91 19 117/92 (100) 96 08/05/17 19:52 102 08/05/17 18:45 97.3 87 20 136/89 (105) 100 08/05/17 18:22 08/05/17 15:26 20 94 Room Air 08/05/17 15:26 16 99 Room Air 08/05/17 13:22 97.2 82 25 162/89 (113) 98 Room Air 08/05/17 13:11 97.2 95 25 162/89 (113) 99 I/O 08/05/17 08/05/17 08/05/17 08/06/17 08/06/17 08/06/17 07:00 15:00 23:00 07:00 15:00 23:00 Intake Total 100 ml Balance 100 ml Intake Oral 100 ml # Voids 1 5 # Bowel Movements 1 (Moises Alicea MD, R3) Result Diagram: 08/06/17 0550 08/06/17 0550 Imaging Last Impressions Chest X-Ray 08/05/17 1318 Signed Impressions: Service Date/Time: Saturday, August 05, 2017 13:42 - CONCLUSION: Moderate hyperinflation and cardiomegaly and congestive failure. No pleural effusion Dagoberto Martines MD FACR Liver Ultrasound 08/05/17 0000 Signed Impressions: Service Date/Time: Saturday, August 05, 2017 19:30 - CONCLUSION: No gallstones. Gallbladder wall thickening. No biliary ductal dilatation. Small cyst right lobe liver. Luis Jackson MD Objective Remarks GEN: Well-developed, well-nourished patient. No acute distress. CV: Irregular rhythm normal rate, Radial and DP pulses 2+ and symmetric bilaterally. Brisk capillary refill in both hands and feet. LUNGS: Clear to auscultation bilaterally. Normal respiratory effort. No wheezes , rales, rhonchi. GI: Soft, nontender, nondistended. No palpable masses. Bowel sounds WNL. EXT: 2+ pitting edema to mid shins. Able to move all extremities NEURO/PSYCH: Afocal. Awake, alert, and oriented x3. Appropriate insight and judgment. Medications and IVs Current Medications Medications (Trade) Dose Ordered Sig/Sara Route Start Time Stop Time Status Last Admin (NS Flush) 2 ml BID IV FLUSH 08/05/17 21:00 08/06/17 08:11 (NS Flush) 2 ml UNSCH PRN IV FLUSH 08/05/17 17:15 (Lasix Inj) 40 mg BID@,18 IVP 08/05/17 18:00 08/06/17 08:10 (Aspirin Chew) 81 mg DAILY CHEW 08/06/17 09:00 Ceftriaxone Sodium 1000 mg/ Sodium Chloride 100 ml @ 200 mls/hr Q24H IV 08/06/17 16:00 (Eliquis) 2.5 mg BID PO 08/05/17 21:00 08/06/17 08:09 (Prinivil) 10 mg DAILY PO 08/06/17 09:00 08/06/17 08:11 (Lopressor) 50 mg BID PO 08/05/17 21:00 3/5/18 08:08 (Pravachol) 20 mg DAILY PO 08/06/17 09:00 08/06/17 08:10 (Protonix) 20 mg DAILY PO 08/06/17 09:00 08/06/17 08:08 (Moises Alicea MD, R3) A/P Assessment and Plan 82 y/o female with history of CHF, AFib presents with shortness of breath. Found to have elevated BNP and in CHF exacerbation. Admitted for workup and management of congestive heart failure. Discharge Planning Anticipate discharge home tomorrow versus the next day pending continue medical improvement (Moises Alicea MD, R3) Attending Attestation Patient seen and examined and discussed with the entire medicine team this morning around 10 AM. She was in no distress at the time of our exam, having been up and ambulating to the bathroom, currently not wearing oxygen as her last oxygen saturation was 91%. She has been voiding a large amount of urine. Denies any dietary indiscretions and denies regular use of alcohol. She is sitting up at the bedside and in no distress. She lives alone but her daughter lives on an upper floor. She is visiting since June, and has several local friends that check on her here. Exam today shows no wheezes, Rales or rhonchi. Exam is as noted above, she does have hyperpigmentation of both lower extremities with some chronic puffiness. Patient seen and examined. Case reviewed and discussed with the resident team. Agree with plan of care as discussed with me and documented in the resident note. (Ira Ceja MD) Problem List: (1) Congestive heart failure ICD Codes: I50.9 - Heart failure, unspecified Status: Acute Plan: Pt. has a cardiac history sig. for CHF and atrial fibrillation. Suspect acute decompensated heart failure. EKG showed atrial fibrillation, with rate of 100 Current heart rate is in the 80s BNP >5000 on admission. -Lasix 40 mg IV BID. -Continue lisinopril -Will attempt to get records from cardiology's office; pt had Echo last week -Encourage patient to sit up in bed with legs below chest or in chair with legs hanging down. -Low-salt diet less than 2 g per day. Fluid restrict to 1.5 L per day. -Strict Is and Os. Daily weights. -Supplemental oxygen and monitor on pulse ox. -Telemetry. -Consulted cardiology-Dr. Kwok, to follow while in hospital (2) Atrial fibrillation ICD Codes: I48.91 - Unspecified atrial fibrillation Status: Acute Plan: History of atrial fibrillation. Well-controlled rate on admission. -Continue metoprolol -Continue Eliquis (3) Acute renal insufficiency ICD Codes: N28.9 - Disorder of kidney and ureter, unspecified Status: Acute Plan: Patient presents with BUN of 35, creatinine of 1.52. Unsure etiology. Unsure of baseline. Improved today at 37/1.36 respectively -Monitor BMP -Fluid restricting due to CHF -Avoid nephrotoxic agents (4) UTI (urinary tract infection) ICD Codes: N39.0 - Urinary tract infection, site not specified Status: Acute Plan: UA shows large leukocyte esterase, 36 Benny C, occasional bacteria. -Continue Rocephin 1g BID -Urine culture pending (5) Transaminitis ICD Codes: R74.0 - Nonspecific elevation of levels of transaminase and lactic acid dehydrogenase [LDH] Status: Acute Plan: AST 123, ALT of 176 on admission. Unsure etiology. Improved today at 61/ 113 respectively -Ultrasound of liver: Benign findings -Monitor CMP (6) HLD (hyperlipidemia) ICD Codes: E78.5 - Hyperlipidemia, unspecified Plan: Continue home pravastatin (7) FEN Status: Acute Plan: Fluids: Fluid restriction Electrolytes: Hyperkalemia, monitor; replace PRN Nutrition: heart healthy diet DVT ppx: Eliquis GI ppx: continue home omeprazole (Moises Alicea MD, R3) Problem Qualifiers (1) Congestive heart failure: Qualified Codes: I50.9 - Heart failure, unspecified (2) Atrial fibrillation: Qualified Codes: I48.91 - Unspecified atrial fibrillation (3) UTI (urinary tract infection): Qualified Codes: N39.0 - Urinary tract infection, site not specified; R31.9 - Hematuria, unspecified (4) HLD (hyperlipidemia): Qualified Codes: E78.5 - Hyperlipidemia, unspecified Moises Alicea MD, R3 Aug 06, 2017 11:49 Ira Ceja MD Aug 06, 2017 12:10
[2017-08-06] MEDS: cefTRIAXone INJ 1,000 MG in SODIUM CHLORIDE 0.9% INJ 100 ML IV SCH (15:48)
[2017-08-06 16:19] LABS: HEMOGLOBIN A1C 5.7 % (4.3-6.0)
[2017-08-06] MEDS ORDERED: POTASSIUM CHLORIDE 20 MEQ CONTROLLED RELEASE TAB PO ONE (21:30)
[2017-08-06] MEDS ORDERED: METOPROLOL TARTRATE 25 MG TAB PO ONE (21:30)
[2017-08-07] VITALS: BP 115/71; PULSE 74; RESP 18; TEMP 97.4; O2SAT 94
[2017-08-07 03:59] VITALS: PULSE 94
[2017-08-07 04:49] VITALS: BP 120/76; PULSE 92; RESP 18; TEMP 97.7; O2SAT 96
[2017-08-07 06:23] LABS: HEMATOCRIT 37.2 % (35.0-46.0); HEMOGLOBIN 12.2 GM/DL (11.6-15.3); MEAN CELL VOLUME 79.4 FL (80.0-100.0); MEAN CORPUSCULAR HEMOGLOBIN 26.2 PG (27.0-34.0); MEAN CORPUSCULAR HGB CONC 32.9 % (32.0-36.0); MEAN PLATELET VOLUME 8.2 FL (7.0-11.0); PLATELET COUNT 220 TH/MM3 (150-450); RED BLOOD COUNT 4.68 MIL/MM3 (4.00-5.30); RED CELL DISTRIBUTION WIDTH 17.4 % (11.6-17.2); WHITE BLOOD COUNT 5.8 TH/MM3 (4.0-11.0)
[2017-08-07 07:08] LABS: ALBUMIN 3.2 GM/DL (3.4-5.0); ALKALINE PHOSPHATASE 88 U/L (45-117); ALT (GPT) 96 U/L (10-53); AST (GOT) 43 U/L (15-37); BICARBONATE 31.4 MEQ/L (21.0-32.0); BLOOD UREA NITROGEN 40 MG/DL (7-18); CALCIUM 8.9 MG/DL (8.5-10.1); CHLORIDE 96 MEQ/L (98-107); FREE T4 1.49 NG/DL (0.76-1.46); GLOMERULAR FILTRATION RATE 36 ML/MIN (>89); GLUCOSE,RANDOM 90 MG/DL (74-106); MAGNESIUM 2.1 MG/DL (1.5-2.5); PHOSPHORUS 4.1 MG/DL (2.5-4.9); SODIUM (NA) 135 MEQ/L (136-145); TOTAL BILIRUBIN ADULT 0.4 MG/DL (0.2-1.0); TOTAL PROTEIN 6.3 GM/DL (6.4-8.2)
[2017-08-07 08:00] VITALS: BP 133/98; PULSE 108; PULSE 91; RESP 20; TEMP 97.8; O2SAT 99
[2017-08-07] MEDS: PANTOPRAZOLE SOD 20 MG DELAYED RELEASE TAB PO SCH (08:57)
[2017-08-07] MEDS: FUROSEMIDE 40 MG/4 ML VIAL IVP SCH (08:57)
[2017-08-07] MEDS: PRAVASTATIN SOD 20 MG TAB PO SCH (08:58)
[2017-08-07] MEDS: APIXABAN 2.5 MG TABLET PO SCH (08:59)
[2017-08-07] MEDS: ASPIRIN 81 MG CHEW TAB CHEW SCH (09:00)
[2017-08-07] MEDS: SODIUM CHLORIDE 0.9% FLUSH 10 ML FLUSH IV FLUSH SCH (09:00)
[2017-08-07] MEDS ORDERED: METOPROLOL TARTRATE 25 MG TAB PO SCH (09:00)
[2017-08-07] MEDS ORDERED: POTASSIUM CHLORIDE 20 MEQ CONTROLLED RELEASE TAB PO SCH ×2 (09:00→10:13)
[2017-08-07] MEDS: LISINOPRIL 10 MG TAB PO SCH (09:01)
--- NOTE | 2017-08-07 09:25 | HHI.FPPN ---
Subjective Remarks Pt seen and examined this morning. No acute events overnight. Reports doing well this morning, no complaints. Improved shortness of breath, no chest pain. Able to walk farther. Denies any fever/chills, abdominal pain, leg pain. (Liam Vieira MD) Objective Vitals Vital Signs Date Time Temp Pulse Resp B/P (MAP) Pulse Ox O2 Delivery O2 Flow Rate FiO2 08/07/17 08:00 97.8 91 20 133/98 (110) 99 08/07/17 07:00 Room Air 2.00 21 08/07/17 04:49 97.7 92 18 120/76 (91) 96 08/07/17 03:59 94 08/07/17 00:00 Room Air 08/07/17 00:00 97.4 74 18 115/71 (86) 94 08/06/17 23:55 76 08/06/17 20:47 21 08/06/17 20:37 90 08/06/17 20:25 Room Air 08/06/17 20:25 97.5 89 18 109/62 (78) 94 08/06/17 16:00 97.4 74 18 115/69 (84) 96 08/06/17 16:00 77 08/06/17 12:00 89 08/06/17 12:00 97.5 80 18 117/80 (92) 94 08/06/17 09:37 92 21 I/O 08/06/17 08/06/17 08/06/17 08/07/17 08/07/17 08/07/17 07:00 15:00 23:00 07:00 15:00 23:00 Intake Total 100 ml 820 ml Output Total 600 ml 1700 ml Balance 100 ml 220 ml -1700 ml Intake Oral 100 ml 720 ml IV Total 100 ml Output Urine Total 600 ml 1700 ml # Voids 5 3 # Bowel Movements 1 2 (Liam Vieira MD) Result Diagram: 08/07/17 0611 08/07/17 0611 Imaging Last Impressions Chest X-Ray 08/05/17 1318 Signed Impressions: Service Date/Time: Saturday, August 05, 2017 13:42 - CONCLUSION: Moderate hyperinflation and cardiomegaly and congestive failure. No pleural effusion Dagoberto Martines MD FACR Liver Ultrasound 08/05/17 0000 Signed Impressions: Service Date/Time: Saturday, August 05, 2017 19:30 - CONCLUSION: No gallstones. Gallbladder wall thickening. No biliary ductal dilatation. Small cyst right lobe liver. Luis Jackson MD Objective Remarks GEN: Well-developed, well-nourished patient. No acute distress. Sitting up in chair CV: Irregular rhythm normal rate, Radial and DP pulses 2+ and symmetric bilaterally. Brisk capillary refill in both hands and feet. LUNGS: Clear to auscultation bilaterally. Normal respiratory effort. No wheezes , rales, rhonchi. GI: Soft, nontender, nondistended. EXT: 1+ pitting edema to mid shins. Able to move all extremities NEURO/PSYCH: Afocal. Awake, alert, and oriented x3. Appropriate insight and judgment. (Liam Vieira MD) A/P Assessment and Plan 82 y/o female with history of CHF, AFib presents with shortness of breath. Found to have elevated BNP and in CHF exacerbation. Admitted for workup and management of congestive heart failure. Discharge Planning Anticipate discharge home today (Liam Vieira MD) Attending Attestation Patient seen today at approximately 2:15 PM. She is sitting up at the bedside, alert, finishing her lunch. She would like to go home today. She's having no chest pain or shortness of breath. I agree with the exam as documented above. Patient seen and examined. Case reviewed and discussed with the resident team. Agree with plan of care as discussed with me and documented in the resident note. (Ira Ceja MD) Problem List: (1) Congestive heart failure ICD Codes: I50.9 - Heart failure, unspecified Status: Acute Plan: Pt. has a cardiac history sig. for CHF and atrial fibrillation. Suspect acute decompensated heart failure. EKG showed atrial fibrillation, with rate of 100 Current heart rate is in the 80s BNP >5000 on admission, trended down to 1769 today -Lasix 40 mg IV BID. -Continue lisinopril 10mg daily -Consulted cardiology-Dr. Kwok, to follow while in hospital -Changed metoprolol to 75mg BID -Encourage patient to sit up in bed with legs below chest or in chair with legs hanging down. -Low-salt diet less than 2 g per day. Fluid restrict to 1.5 L per day. -Strict Is and Os. Daily weights. -Supplemental oxygen and monitor on pulse ox. -Telemetry. (2) Atrial fibrillation ICD Codes: I48.91 - Unspecified atrial fibrillation Status: Acute Plan: History of atrial fibrillation. Well-controlled rate on admission. -Continue metoprolol -Continue Eliquis (3) Acute renal insufficiency ICD Codes: N28.9 - Disorder of kidney and ureter, unspecified Status: Acute Plan: Patient presents with BUN of 35, creatinine of 1.52. Unsure etiology. Unsure of baseline. Stable today at 40/1.40 -Monitor BMP -Fluid restricting due to CHF -Avoid nephrotoxic agents (4) UTI (urinary tract infection) ICD Codes: N39.0 - Urinary tract infection, site not specified Status: Acute Plan: UA shows large leukocyte esterase, 36 WBC, occasional bacteria. -Continue Rocephin 1g BID -Urine culture shows immature growth (5) Transaminitis ICD Codes: R74.0 - Nonspecific elevation of levels of transaminase and lactic acid dehydrogenase [LDH] Status: Acute Plan: AST 123, ALT of 176 on admission. Unsure etiology. Improved -Ultrasound of liver: Benign findings -Monitor CMP (6) HLD (hyperlipidemia) ICD Codes: E78.5 - Hyperlipidemia, unspecified Plan: Continue home pravastatin (7) FEN Status: Acute Plan: Fluids: Fluid restriction Electrolytes: wnl. monitor; replace PRN Nutrition: heart healthy diet DVT ppx: Eliquis GI ppx: continue home omeprazole (Liam Vieira MD) Problem Qualifiers (1) Congestive heart failure: Qualified Codes: I50.9 - Heart failure, unspecified (2) Atrial fibrillation: Qualified Codes: I48.91 - Unspecified atrial fibrillation (3) UTI (urinary tract infection): Qualified Codes: N39.0 - Urinary tract infection, site not specified; R31.9 - Hematuria, unspecified (4) HLD (hyperlipidemia): Qualified Codes: E78.5 - Hyperlipidemia, unspecified Liam Vieira MD Aug 07, 2017 09:25 Ira Ceja MD Aug 07, 2017 15:03
[2017-08-07] MEDS ORDERED: DIGOXIN 0.125 MG TAB PO SCH (10:14)
[2017-08-07] MEDS ORDERED: DIGOXIN 0.5 MG/2 ML VIAL IV PUSH ONE (10:15)
--- NOTE | 2017-08-07 10:55 | MB ---
cc: Adria Kwok MD DATE OF CONSULT: 08/06/2017 HISTORY OF PRESENT ILLNESS: Ms. Ramires is a pleasant 82-year-old lady who was recently established in the practice about 2 weeks ago with history of moderate to severe cardiomyopathy, history of recurrent CHF, history of atrial fibrillation, and valvular heart disease. She was admitted on 08/05 with progressive shortness of breath and PND with orthopnea and lower extremity edema. Denies chest pain. She has had in and out episodes of palpitations, but no dizziness or syncope. Denies claudication. ALLERGIES: DARVON, MORPHINE, STRAWBERRIES, PENICILLIN, SESAME ACCORDING TO HER. FAMILY HISTORY: Positive for "heart disease," but the details are not known. No family history of diabetes or cancer. SOCIAL HISTORY: She has a 4 pack-year history of smoking. She quit smoking 56 years ago. Denies ETOH abuse or recreational drug abuse. PAST MEDICAL AND SURGICAL HISTORY: 1. Includes as mentioned above. 2. History of persistent AFib. 3. Questionable atherosclerotic heart disease. 4. Valvular heart disease with moderate to severe mitral regurgitation, moderate to severe aortic insufficiency, and moderate tricuspid regurgitation with a PA systolic pressure around 35-40 mmHg. 6. History of hypertension. 7. Moderate to severe cardiomyopathy. 8. Osteoarthritis. 9. Esophageal ulcers. 10. She had bilateral cataract surgery in 2008. 11. Left knee replacement, 2009. 12. Tonsillectomy, 193. 13. Bladder and rectum prolapse repair in 2017. 14. Tubal ligation in 1973. MEDICATIONS AT HOME: Include Eliquis 2.5 mg p.o. b.i.d., lisinopril 10 mg p.o. daily, metoprolol tartrate 50 mg p.o. b.i.d., omeprazole 20 mg p.o. daily, calcium supplements. She is here on IV Lasix. REVIEW OF SYSTEMS: A 12-point system review was unremarkable except those mentioned in the history of present illness. PHYSICAL EXAMINATION: GENERAL: An 82-year-old lady lying in a recliner, not in distress. Alert, oriented x 3. Answers questions appropriately. VITALS: Show the blood pressure is 116/70 mmHg, pulse is 106 beats per minute, irregularly irregular, respirations at 16 per minute, afebrile. HEENT: Shows head is normocephalic. Pupils equal and reactive. Throat is within normal limits. NECK: Supple. No carotid bruit. No thyromegaly. No jugular venous distention noted. LUNGS: Show few crepitations at the right base with fine crepitations at the left base; otherwise clear. CARDIOVASCULAR: S1, S2 are variable in intensity with an S4 gallop and II/ early diastolic murmur at the left sternal border and right second intercostal space and a II/ pansystolic murmur at the apex. ABDOMEN: Lax, nontender. Normoactive bowel sounds. No organomegaly. No masses felt. EXTREMITIES: No clubbing or cyanosis. +1 pitting edema of lower extremities bilaterally. Hyperpigmented skin changes secondary likely to venous insufficiency. Arthritic changes of the metatarsal joints noted. Pulses 2+ bilaterally, dorsalis pedis and posterior tibial arteries are barely felt. NEUROLOGIC: Grossly intact with no focal deficits. RECTAL: Deferred. Chest x-ray with mild pulmonary congestion. LABORATORY STUDIES: Noted with elevated BNP greater than 5000. Mild renal insufficiency noted. Coags are within normal limits. Nonspecific mild elevation of the D-dimer; however, she is already on Eliquis. ASSESSMENT AND RECOMMENDATIONS: Congestive heart failure, likely secondary to acute on top of chronic systolic/diastolic heart failure. Rapid ventricular response. Will increase the metoprolol dose for better ventricular response rate and add low-dose digoxin cautiously with close followup on the levels. She is already diuresed a good amount and she is satting relatively okay on room air. We will switch her IV Lasix to p.o. Complete set of electrolytes will be checked as well as TSH and free T4 levels. Regarding her moderate to severe valvular heart disease with significant cardiomyopathy, further discussion will be made. Because of her cardiomyopathy, she would be at an increased risk for morbidity and mortality postoperatively. This will be discussed further and we will make followup recommendations. In the meantime, we will treat her acute episode of congestive heart failure and further workup can even be done as an outpatient. Continue her SHITAL inhibitors, beta-blockers. Once her AFib rate is controlled, she is already on anticoagulation with adjusted dose of Eliquis (adjusted to her age and weight), then she can be discharged with further followup as an outpatient. Lipid panel will be checked fasting and treated accordingly. Ischemia workup will need to be addressed also, and this would depend on her wishes for further aggressive management. We will follow her care. I thank you for the consultation. Patient seen on 08/06/2017. Consult dictated 08/07/2017. MD JAIME Tamez/TI/ , 09:30 AM , 09:55 AM
[2017-08-07] MEDS: MAGNESIUM SULFATE INJ 2 GM in SODIUM CHLORIDE 0.9% INJ 50 ML IV SCH ×2 (11:36→12:08)
[2017-08-07 12:00] VITALS: BP 110/78; PULSE 70; PULSE 89; RESP 20; TEMP 98; O2SAT 95
[2017-08-07] MEDS ORDERED: METO-426 PO ×2 (14:05→16:12)
[2017-08-07] MEDS ORDERED: DIGO0.12 PO ×2 (14:07→16:12)
[2017-08-07] MEDS ORDERED: FURO40TA PO ×2 (14:29→16:12)
--- NOTE | 2017-08-07 14:31 | HHI.DCPOC ---
Discharge Care Plan Diagnosis: (1) Congestive heart failure (2) Atrial fibrillation Goals to Promote Your Health * To prevent worsening of your condition and complications * To maintain your health at the optimal level Directions to Meet Your Goals Take your medications as prescribed Follow your dietary instruction Follow activity as directed Keep your appointments as scheduled Take your immunizations and boosters as scheduled If your symptoms worsen call your PCP, if no PCP go to Urgent Care Center or Emergency Room Smoking is Dangerous to Your Health. Avoid second hand smoke Call the 24-hour hour crisis hotline for domestic abuse at José Miguel Flowers MD, R1 Aug 07, 2017 14:31
[2017-08-07] MEDS: cefTRIAXone INJ 1,000 MG in SODIUM CHLORIDE 0.9% INJ 100 ML IV SCH (16:00)
[2017-08-07] MEDS ORDERED: APIX2.5T PO (16:12)
[2017-08-07 17:00] VITALS: O2SAT 95
[2017-08-08] MEDS ORDERED: FUROSEMIDE 40 MG TAB PO SCH (09:00)
[2017-08-08] MEDS ORDERED: POTASSIUM CHLORIDE 20 MEQ CONTROLLED RELEASE TAB PO SCH (09:00)
--- NOTE | 2017-08-08 09:32 | HHI.DS ---
Discharge Summary Admission Date Aug 05, 2017 at 16:03 Discharge Date: Aug 07, 2017 Admitting Diagnosis CHF, acute renal insufficiency, UTI (1) Congestive heart failure Plan: Pt. has a cardiac history sig. for CHF and atrial fibrillation. Suspect acute decompensated heart failure. EKG showed atrial fibrillation, with rate of 100 Current heart rate is in the 80s BNP >5000 on admission, trended down to 1769 today -Lasix 40 mg IV BID. -Continue lisinopril 10mg daily -Consulted cardiology-Dr. Kwok, to follow while in hospital -Changed metoprolol to 75mg BID -Encourage patient to sit up in bed with legs below chest or in chair with legs hanging down. -Low-salt diet less than 2 g per day. Fluid restrict to 1.5 L per day. -Strict Is and Os. Daily weights. -Supplemental oxygen and monitor on pulse ox. -Telemetry. ICD Codes: I50.9 - Heart failure, unspecified Status: Acute (2) Atrial fibrillation Plan: History of atrial fibrillation. Well-controlled rate on admission. -Continue metoprolol -Continue Eliquis ICD Codes: I48.91 - Unspecified atrial fibrillation Status: Acute (3) Acute renal insufficiency Plan: Patient presents with BUN of 35, creatinine of 1.52. Unsure etiology. Unsure of baseline. Stable today at 40/1.40 -Monitor BMP -Fluid restricting due to CHF -Avoid nephrotoxic agents ICD Codes: N28.9 - Disorder of kidney and ureter, unspecified Status: Acute (4) UTI (urinary tract infection) Plan: UA shows large leukocyte esterase, 36 WBC, occasional bacteria. -Continue Rocephin 1g BID -Urine culture shows immature growth ICD Codes: N39.0 - Urinary tract infection, site not specified Status: Acute (5) Transaminitis Plan: AST 123, ALT of 176 on admission. Unsure etiology. Improved -Ultrasound of liver: Benign findings -Monitor CMP ICD Codes: R74.0 - Nonspecific elevation of levels of transaminase and lactic acid dehydrogenase [LDH] Status: Acute (6) HLD (hyperlipidemia) Plan: Continue home pravastatin ICD Codes: E78.5 - Hyperlipidemia, unspecified (7) FEN Plan: Fluids: Fluid restriction Electrolytes: wnl. monitor; replace PRN Nutrition: heart healthy diet DVT ppx: Eliquis GI ppx: continue home omeprazole Status: Acute Brief History 82-year-old female with history of CHF, atrial fibrillation presents with shortness of breath. She states that she started getting short of breath about a week ago. It progressively worsened, was not sudden onset. States she's been unable to sleep. Shortness of breath worse when laying down. She states she now cannot walk more than 4 steps without getting very short of breath. Has aany recent weight gain. Has had chronic edema in her legs, hasn't noticed worsening in the last week. Last summer, she is to walk 2 miles without any difficulty. Not on oxygen at home. She was in [place], but has come down here for the winter to spend time with friends. She just established with Dr. Kwok 2 weeks ago, who started her on some new medications, specifically started her on metoprolol and d/c her Dronedarone. States she just had echocardiogram last week, as well as some labs. States she's been drinking some water, but tries to stay away from salt. Had vomiting 2 today with some nausea, but that is improved. Denies any chest pain. CBC/BMP: 08/07/17 0611 08/07/17 0611 Significant Findings Laboratory Tests Test 08/05/17 13:30 08/05/17 13:36 08/05/17 15:15 08/05/17 17:20 Mean Corpuscular Hemoglobin 26.6 PG (27.0-34.0) Red Cell Distribution Width 18.4 % (11.6-17.2) Neutrophils (%) (Auto) 72.2 % (16.0-70.0) D-Dimer Quantitative (PE/DVT) 0.91 MG/L FEU (0.00-0.50) Blood Urea Nitrogen 35 MG/DL (7-18) Creatinine 1.52 MG/DL (0.50-1.00) Random Glucose 168 MG/DL (74-106) Sodium Level 133 MEQ/L (136-145) Potassium Level 5.6 MEQ/L (3.5-5.1) Estimat Glomerular Filtration Rate 33 ML/MIN (>89) Aspartate Amino Transf (AST/SGOT) 123 U/L (15-37) Alanine Aminotransferase (ALT/SGPT) 176 U/L (10-53) Troponin I LESS THAN 0.02 NG/ML LESS THAN 0.02 NG/ML B-Type Natriuretic Peptide GREATER THAN 5000 PG/ML Urine Protein 30 mg/dL (NEG-TRACE) Urine Occult Blood TRACE (NEG) Urine Leukocyte Esterase LARGE (NEG) Urine RBC 7 /hpf (0-3) Urine WBC 36 /hpf (0-5) Urine Bacteria OCC /hpf (NONE) Urine Mucus FEW /lpf (OCC) Test 08/06/17 05:50 08/07/17 06:11 Red Cell Distribution Width 17.7 % (11.6-17.2) 17.4 % (11.6-17.2) Monocytes (%) (Auto) 10.4 % (0.0-8.0) Blood Urea Nitrogen 37 MG/DL (7-18) 40 MG/DL (7-18) Creatinine 1.36 MG/DL (0.50-1.00) 1.40 MG/DL (0.50-1.00) Total Protein 5.7 GM/DL (6.4-8.2) 6.3 GM/DL (6.4-8.2) Albumin 3.1 GM/DL (3.4-5.0) 3.2 GM/DL (3.4-5.0) Calcium Level 7.9 MG/DL (8.5-10.1) Aspartate Amino Transf (AST/SGOT) 61 U/L (15-37) 43 U/L (15-37) Alanine Aminotransferase (ALT/SGPT) 113 U/L (10-53) 96 U/L (10-53) Sodium Level 135 MEQ/L (136-145) 135 MEQ/L (136-145) Chloride Level 97 MEQ/L (98-107) 96 MEQ/L (98-107) Estimat Glomerular Filtration Rate 37 ML/MIN (>89) 36 ML/MIN (>89) Troponin I LESS THAN 0.02 NG/ML Mean Corpuscular Volume 79.4 FL (80.0-100.0) Mean Corpuscular Hemoglobin 26.2 PG (27.0-34.0) B-Type Natriuretic Peptide 1769 PG/ML (0-100) Free Thyroxine 1.49 NG/DL (0.76-1.46) PE at Discharge GEN: Well-developed, well-nourished patient. No acute distress. Sitting up in chair CV: Irregular rhythm normal rate, Radial and DP pulses 2+ and symmetric bilaterally. Brisk capillary refill in both hands and feet. LUNGS: Clear to auscultation bilaterally. Normal respiratory effort. No wheezes , rales, rhonchi. GI: Soft, nontender, nondistended. EXT: 1+ pitting edema to mid shins. Able to move all extremities NEURO/PSYCH: Afocal. Awake, alert, and oriented x3. Appropriate insight and judgment. Pt Condition on Discharge: Stable Discharge Disposition: Discharge Home Discharge Instructions DIET: Follow Instructions for: Heart Healthy Diet Activities you can perform: Regular-No Restrictions José Miguel Flowers MD, R1 Aug 08, 2017 09:32
--- NOTE | 2017-08-09 13:16 | EKG ---
Date Performed: 08/05/2017 Time Performed: 13:23:14 PTAGE: 82 years EKG: ATRIAL FIBRILLATION WITH RAPID VENTRICULAR RESPONSE MODERATE INTRAVENTRICULAR CONDUCTION DE LAY ST DEVIATION AND MODERATE T-WAVE ABNORMALITY, CONSIDER LATERAL ISCHEMIA ABNORMAL ECG INTERPRETATI ON BASED ON A DEFAULT AGE OF 40 YEARS NO PREVIOUS TRACING DOCTOR: Albino Kee Interpretating Date/Time 08/09/2017 13:14:29
--- NOTE | 2017-08-09 13:23 | EKG ---
Date Performed: 08/05/2017 Time Performed: 18:58:16 PTAGE: 82 years EKG: ATRIAL FIBRILLATION WITH ABERRANT CONDUCTION OR VENTRICULAR PREMATURE COMPLEXES MODERATE IN TRAVENTRICULAR CONDUCTION DELAY ST DEVIATION AND MODERATE T-WAVE ABNORMALITY, CONSIDER LATERAL ISCHEM IA ABNORMAL ECG PREVIOUS TRACING : 08/05/2017 13.23 Since the prior tracing, there has been no significant xie DOCTOR: Albino Kee Interpretating Date/Time 08/09/2017 13:22:49
== END 2017-08-07 17:46 | disposition home or self-care (01) | DRG 292 ==
LOC: NEPE 13:06 → NEDA 16:03 → N04B 18:14
PROVIDERS: ADMIT Family Medicine; ATTEND Family Medicine
DX: I11.0 Hypertensive heart disease with heart failure (principal); I48.1 Persistent atrial fibrillation; I24.8 Other forms of acute ischemic heart disease; I42.9 Cardiomyopathy, unspecified; N39.0 Urinary tract infection, site not specified; I50.43 Acute on chronic combined systolic (congestive) and diastolic (congestive) heart failure; E78.5 Hyperlipidemia, unspecified; N28.9 Disorder of kidney and ureter, unspecified; E87.5 Hyperkalemia; R74.0 Nonspecific elevation of levels of transaminase and lactic acid dehydrogenase [LDH]; I87.8 Other specified disorders of veins; I08.3 Combined rheumatic disorders of mitral, aortic and tricuspid valves; M19.90 Unspecified osteoarthritis, unspecified site; J44.9 Chronic obstructive pulmonary disease, unspecified; Z79.01 Long term (current) use of anticoagulants; Z82.49 Family history of ischemic heart disease and other diseases of the circulatory system; Z87.891 Personal history of nicotine dependence; Z88.0 Allergy status to penicillin; Z88.5 Allergy status to narcotic agent; Z96.652 Presence of left artificial knee joint
CPT/HCPCS: 71046; 76705; 80048; 80053; 80076; 81001; 82550; 83036; 83690; 83735; 83880; 84100; 84439; 84443; 84484; 85025; 85027; 85379; 85610; 87086; 93005; 96374; 96375; J0696; J1160; J1940; J3475